=== PATIENT | female | born 1960 | race Caucasian/White ===

== ENCOUNTER → 2018-08-04 10:34 | Outpatient (CLI) | payer OTHER, SELFPAY ==
[2018-08-04 11:26] LABS: Add Manual Diff / Slide Review NO; Basophils Absolute Auto 0 /uL (0-100); Basophils Percent Auto 0.4 % (0-2); Eosinophils Absolute Auto 200 /uL (0-450); Eosinophils Percent Auto 4.4 % (2-4); Hematocrit 41.9 % (36-46); Lymphocytes Absolute Auto 1600 /uL (1100-4500); Lymphocytes Percent Auto 29.6 % (25-40); Mean Corpuscular HGB Conc 33.3 % (30-36); Mean Corpuscular Hemoglobin 30.6 PG (26-34); Monocytes Absolute Auto 500 /uL (0-900); Monocytes Percent Auto 8.8 % (3-14); Neutrophils Absolute Auto 3100 /uL (1500-7000); Neutrophils Percent Auto 56.8 % (50-75); Platelet Count 150 X10^3/uL (150-400); Red Blood Cell Count 4.56 X10^6/uL (4.0-5.2); Red Cell Distribution Width 13.9 % (11.6-14.8); White Blood Cell Count 5.4 X10^3/uL (4.5-11.0)
[2018-08-04 11:41] LABS: Alanine Aminotransferase 34 IU/L (9-52); Albumin 4.2 g/dL (3.5-5.0); Albumin Globulin Ratio 1.4 (1.0-2.8); Alkaline Phosphatase 75 U/L (38-126); Aspartate Aminotransferase 31 IU/L (14-36); Bilirubin Total 1.1 mg/dL (0.2-1.3); Blood Urea Nitrogen 21 mg/dL (7-17); Calcium 8.8 mg/dL (8.4-10.2); Carbon Dioxide 29 mmol/L (22-32); Chloride 100 mmol/L (98-107); Cholesterol 197 mg/dL (140-199); Estimated Glomerular Filt Rate > 60.0 mL/min (>60); Globulin 2.9 g/dL (1.7-4.1); Glucose 89 mg/dL (80-110); HDL Cholesterol 85 mg/dL (40-60); HEMOLYSIS < 15 (0-50); LDL Cholesterol Calculated 99 mg/dL (<100); Potassium 3.8 mmol/L (3.4-5.1); Sodium 137 mmol/L (137-145); Total Protein 7.1 g/dL (6.3-8.2); Triglycerides 63 mg/dL (35-150)
[2018-08-04 12:32] LABS: Thyroid Stimulating Hormone 5.44 uIU/mL (0.47-4.68)
== END ==
PROVIDERS: PCP Family Medicine; Visit Provider Family Medicine
DX: E78.00 Pure hypercholesterolemia, unspecified (principal); Z00.00 Encounter for general adult medical examination without abnormal findings
CPT/HCPCS: 36415; 80053; 80061; 84443; 85025

== ENCOUNTER → 2019-03-28 08:31 | Outpatient (CLI) | payer OTHER, SELFPAY ==
--- NOTE | 2019-03-28 08:32 | DI.MG.S_ITS ---
BILATERAL DIGITAL SCREENING MAMMOGRAM 3D/2D WITH CAD: 03/28/2019 CLINICAL: Routine screening. Family history of breast cancer. Comparison is made to exams dated: 10/02/2017 mammogram, 06/23/2015 mammogram - [facility], and 06/16/2013 mammogram - [facility]. The tissue of both breasts is heterogeneously dense. This may lower the sensitivity of mammography. Current study was also evaluated with a Computer Aided Detection (CAD) system. No significant masses, calcifications, or other findings are seen in either breast. There has been no significant interval change. IMPRESSION: NEGATIVE There is no mammographic evidence of malignancy. A 1 year screening mammogram is recommended. This exam was interpreted at Station ID: [id number]. NOTE: For mammograms, a report in lay terms will be sent to the patient. Approximately 15% of breast malignancies will not be visualized mammographically. In the management of a palpable breast mass, a negative mammogram must not discourage biopsy of a clinically suspicious lesion. Electronically Signed By: Viral marion/becky:03/30/2019 07:53:38 letter sent: Normal Exam ACR BI-RADS Category 1: Negative 3341F
== END ==
PROVIDERS: PCP Family Medicine; Visit Provider Family Medicine
DX: Z12.31 Encounter for screening mammogram for malignant neoplasm of breast (principal); Z80.3 Family history of malignant neoplasm of breast
CPT/HCPCS: 77063; 77067

== ENCOUNTER → 2019-08-05 09:25 | Outpatient (CLI) | payer OTHER, SELFPAY ==
[2019-08-05 10:09] LABS: Add Manual Diff / Slide Review NO; Basophils Absolute Auto 0 /uL (0-100); Basophils Percent Auto 0.6 % (0-2); Eosinophils Absolute Auto 300 /uL (0-450); Eosinophils Percent Auto 5.6 % (2-4); Hematocrit 42.5 % (36-46); Hemoglobin 14.5 g/dL (12.0-16.0); Lymphocytes Absolute Auto 1600 /uL (1100-4500); Lymphocytes Percent Auto 34.3 % (25-40); Mean Corpuscular HGB Conc 34.2 % (30-36); Mean Corpuscular Volume 90.8 fL (80-100); Monocytes Absolute Auto 400 /uL (0-900); Monocytes Percent Auto 8.7 % (3-14); Neutrophils Absolute Auto 2400 /uL (1500-7000); Neutrophils Percent Auto 50.8 % (50-75); Platelet Count 150 X10^3/uL (150-400); Red Blood Cell Count 4.68 X10^6/uL (4.0-5.2); Red Cell Distribution Width 13.5 % (11.6-14.8); White Blood Cell Count 4.7 X10^3/uL (4.5-11.0)
[2019-08-05 10:42] LABS: Alanine Aminotransferase 20 IU/L (<35); Albumin 4.6 g/dL (3.5-5.0); Albumin Globulin Ratio 1.6 (1.0-2.8); Alkaline Phosphatase 76 U/L (38-126); Aspartate Aminotransferase 34 IU/L (14-36); BUN Creatinine Ratio 30.9 (6-22); Bilirubin Total 1.5 mg/dL (0.2-1.3); Blood Urea Nitrogen 21 mg/dL (7-17); Calcium 9.7 mg/dL (8.4-10.2); Carbon Dioxide 30 mmol/L (22-32); Chloride 102 mmol/L (98-107); Cholesterol 210 mg/dL (140-199); Estimated Glomerular Filt Rate > 60.0 mL/min (>60); Globulin 2.9 g/dL (1.7-4.1); Glucose 91 mg/dL (80-110); HDL Cholesterol 82 mg/dL (40-60); HEMOLYSIS < 15 (0-50); LDL Cholesterol Calculated 118 mg/dL (<100); Sodium 138 mmol/L (137-145); Total Protein 7.5 g/dL (6.3-8.2); Triglycerides 48 mg/dL (35-150)
[2019-08-05 10:46] LABS: Potassium 5.4 mmol/L (3.4-5.1)
[2019-08-05 11:12] LABS: TSH w/ Reflex to FT4 6.29 uIU/mL (0.47-4.68)
[2019-08-05 11:41] LABS: Free T4, Direct Thyroxine 0.89 ng/dL (0.78-2.19)
== END ==
PROVIDERS: PCP Family Medicine; Referring Provider Family Medicine; Visit Provider Family Medicine
DX: E78.00 Pure hypercholesterolemia, unspecified (principal); R94.6 Abnormal results of thyroid function studies
CPT/HCPCS: 36415; 80053; 80061; 84439; 84443; 85025

== ENCOUNTER 2019-12-03 11:02 | Emergency (ER) | payer OTHER, SELFPAY ==
[2019-12-03 11:10] VITALS: BP 138/84; PULSE 67; RESP 16; TEMP 36.2; O2SAT 99; BMI 19.5
[2019-12-03] MEDS: LIDO 1%/SOD BICARB 8.4% (10ML) 10 ML SYRINGE INJ (11:40)
[2019-12-03] MEDS: TET,DIPH,PERTUSS(ACELL),VAC/PF 0.5 ML SYRINGE IM (11:41)
--- NOTE | 2019-12-03 11:54 | ED_ITS ---
HPI - Extremity Injury (Lower) <LI Lux - Last Filed: 12/03/19 14:40> General Chief Complaint: Extremity Injury, Lower Stated Complaint: cut on left leg Time Seen by Provider: 12/03/19 11:06 Source: patient Mode of arrival: Ambulatory Limitations: no limitations History of Present Illness HPI Narrative: The patient is a 59-year-old female nonsmoker with history of high cholesterol who presents with a chief complaint of a laceration to her left thigh. She states that she was cutting blackberry bushes an accidentally clipped hurt her left leg When the clippers rebounded. She does not know her last tetanus was. She is able to weightbear well, states that she thought she might be able to use Steri-Strips at home. However she is concerned about cleaning out as well as her not updated tetanus Related Data Home Medications Medication Instructions Recorded Confirmed multivitamin 1 cap PO DAILY 08/11/18 08/13/19 Previous Rx's Medication Instructions Recorded ferrous gluconate 324 mg PO BID #180 tab 10/29/18 Allergies Allergy/AdvReac Type Severity Reaction Status Date / Time codeine [CODEINE] Allergy Mild itchy skin Verified 08/13/19 09:02 Review of Systems <LI Lux - Last Filed: 12/03/19 14:40> Review of Systems Narrative: GENERAL: Denies chills, fatigue, malaise, fever, sweats. HEENT: Denies sinus pain, ear pain, sore throat, difficulty swallowing, dizziness. RESPIRATORY: Denies dyspnea, cough, wheezing, hemoptysis, sputum. CARDIOVASCULAR: Denies chest pain, palpitations, orthopnea, edema, GASTROINTESTINAL: Denies nausea, vomiting, abdominal pain, diarrhea, constipation, melena. : Denies dysuria, frequency, incontinence, hematuria, urinary retention. MUSCULOSKELETAL: denies weakness, joint pain, or bony pain SKIN: See HPI NEUROLOGIC: Denies weakness, headache, numbness, change in speech, confusion, seizures, incoordination. PSYCHIATRIC: No concerning psychosocial issues. 12 point review of systems is negative except for those stated above Patient History <LI Lux - Last Filed: 12/03/19 14:40> Family History (Updated 06/13/15 @ 00:00 by Conversion Provider) Brother Age: 59 Diabetes mellitus Heart disease Essential hypertension High cholesterol Grandfather Dementia Grandmother Malignant neoplasm of lung, unspecified laterality, unspecified part of lung Brain cancer Mother Ovarian cancer, unspecified laterality Diabetes mellitus Heart disease Heart murmur Sister Age: 68 Diabetes mellitus High cholesterol Smoker Social History marital status: Smoking Status: Never smoker alcohol intake: current (ON OCCASION ) substance use type: does not use Smoking Status: Never smoker Substance Use Type: does not use Exam <LI Lux - Last Filed: 12/03/19 14:40> Narrative Exam Narrative: GENERAL: This is a well-nourished, well-developed patient, in no acute distress HEAD: Atraumatic. Normocephalic. No temporal or scalp tenderness. EYES: Pupils equal round and reactive. Extraocular motions intact. No scleral icterus. No injection or drainage. ENT: Nose without bleeding, purulent drainage or septal hematoma. Airway patent. NECK: Trachea midline. No JVD or lymphadenopathy. Supple, nontender, no meningeal signs. CARDIOVASCULAR: Regular rate and rhythm RESPIRATORY: No cough. No increased respiratory effort. No accessory muscle use. EXTREMITIES: See skin exam. Weight-bearing with no defect bilateral lower legs. BACK: Nontender without deformity or crepitance. No flank tenderness. NEURO: AOx3. SKIN: 4 cm irregular laceration noted on anterior aspect of left thigh. Through dermis. No obvious muscle or tendon involvement. Oozing blood. No obvious foreign bodies. Initial Vital Signs Initial Vital Signs: Vital Signs Temperature 97.1 F L 12/03/19 11:10 Pulse Rate 67 12/03/19 11:10 Respiratory Rate 16 12/03/19 11:10 Blood Pressure 138/84 12/03/19 11:10 Pulse Oximetry 99 12/03/19 11:10 <Carlos Carpenter DO - Last Filed: 12/04/19 10:59> Initial Vital Signs Initial Vital Signs: Vital Signs Temperature 97.1 F L 12/03/19 11:10 Pulse Rate 67 12/03/19 11:10 Respiratory Rate 16 12/03/19 11:10 Blood Pressure 138/84 12/03/19 11:10 Pulse Oximetry 99 12/03/19 11:10 Procedures <LI Lux - Last Filed: 12/03/19 14:40> Laceration Repair Laceration 1: Site: lower extremity Side (If applicable): left Size (cm): 4 Description: flap and irregular Depth: simple, single layer Local Anesthetic: lidocaine 1% and with bicarb Amount of anesthesia used (mL): 6 Pre-repair: wound explored and irrigated extensively (sterile saline, chlorhexidine) Size (cm): 4-0 Number of sutures: 6 Technique: simple, interrupted Scores <LI Lux - Last Filed: 12/03/19 14:40> GCS [place] coma scale eye opening: Spontaneous [place] coma scale verbal response: Orientated [place] coma scale motor response: Obey commands Joaquina coma scale total score: 15 Course <LI Lux - Last Filed: 12/03/19 14:40> Orders Ordered: Discontinued Medications Bacitracin (Bacitracin) 1 applic TOP NOW ONE Stop: 12/03/19 11:57 Last Admin: 12/03/19 11:58 Dose: 1 applic Documented by: JUAN J Diphtheria/Tetanus/Acell Pertussis (Adacel) 0.5 ml IM .ONCE ONE Stop: 12/03/19 11:15 Last Admin: 12/03/19 11:41 Dose: 0.5 ml Documented by: JUAN J Lidocaine/Sodium Bicarbonate (Buffered Lidocaine 10 Ml Syr) 10 ml INJ NOW ONE Stop: 12/03/19 11:15 Last Admin: 12/03/19 11:40 Dose: 10 ml Documented by: JUAN J Vital Signs Vital signs: Vital Signs - 8 hr 12/03/19 11:10 12/03/19 12:15 Temperature 97.1 F L 98.5 F Pulse Rate 67 68 Respiratory Rate 16 16 Blood Pressure 138/84 132/77 Pulse Oximetry 99 99 <Carlos Carpenter DO - Last Filed: 12/04/19 10:59> Orders Ordered: Discontinued Medications Bacitracin (Bacitracin) 1 applic TOP NOW ONE Stop: 12/03/19 11:57 Last Admin: 12/03/19 11:58 Dose: 1 applic Documented by: JUAN J Diphtheria/Tetanus/Acell Pertussis (Adacel) 0.5 ml IM .ONCE ONE Stop: 12/03/19 11:15 Last Admin: 12/03/19 11:41 Dose: 0.5 ml Documented by: JUAN J Lidocaine/Sodium Bicarbonate (Buffered Lidocaine 10 Ml Syr) 10 ml INJ NOW ONE Stop: 12/03/19 11:15 Last Admin: 12/03/19 11:40 Dose: 10 ml Documented by: JUAN J Vital Signs Vital signs: Vital Signs - 8 hr 12/03/19 11:10 12/03/19 12:15 Temperature 97.1 F L 98.5 F Pulse Rate 67 68 Respiratory Rate 16 16 Blood Pressure 138/84 132/77 Pulse Oximetry 99 99 MDM - Extremity Injury (Lower) <GLADIS Lux- - Last Filed: 12/03/19 14:40> MDM Narrative Medical decision making narrative: The patient is a 59-year-old female who pres ents with a chief complaint of a laceration. Her tetanus was updated accordingly. Patient declined any x-ray for foreign body, though I have low suspicion given how well we were able to flush it out. Her wound was copiously cleansed with chlorhexidine and normal saline. Her wound was closed as per procedural note. I discussed at length follow up with primary care provider, monitoring for signs and symptoms of infection such as redness purulent drainage etcetera. Discussed not being submerged in dirty water such as pool or [place] water. Patient has no questions or concerns upon discharge and states understanding of return precautions as well as follow-up care Discharge Plan Departure Patient Disposition: Home Clinical Impression: Laceration Discharge Date/Time: 12/03/19 12:15 Instructions: DI for Laceration Repair, DI for Laceration Repair -- Simple Activity Restrictions/Additional Instructions: Thank you for trusting us with your care today. I am sorry that you were injured in hope you heal well and quickly Today we updated your tetanus and sutured your wound. As discussed, please do not submerge your wound into dirty water such as pools, hot tubs, lakes etcetera. This can increase your chance of infection. Please monitor for signs of infection such as redness, purulent drainage etcetera please follow up with these occur Please come back to emergency department for any acute concerns Please follow up for suture removal in approximately 8-10 days. Prescriptions: No Action ferrous gluconate 324 mg (38 mg iron) tablet 324 mg PO BID Qty: 180 RF: 3 multivitamin capsule 1 cap PO DAILY RF: 0 Referrals: Malcolm Monsivais MD [Primary Care Provider] - <Carlos Carpenter DO - Last Filed: 12/04/19 10:59> Cosign ED Attending Cosrosettaature Attestation: I was immediately available in the department for consultation. This documentation has been reviewed and I agree with assessment and plan. Supervised by Carlos Carpenter DO
[2019-12-03] MEDS: BACITRACIN OINT 0.9 GM PCKT 1 APPLIC TOP (11:58)
[2019-12-03 12:15] VITALS: BP 132/77; PULSE 68; RESP 16; TEMP 36.9; O2SAT 99
== END 2019-12-03 12:15 | disposition home or self-care (01) ==
PROVIDERS: Emergency Provider Nurse Practitioner Family; PCP Family Medicine
DX: S71.112A Laceration without foreign body, left thigh, initial encounter (principal); W45.8XXA Other foreign body or object entering through skin, initial encounter
CPT/HCPCS: 12002; 90471; 99282; 99283; 90715

== ENCOUNTER → 2020-07-21 10:35 | Outpatient (CLI) | payer OTHER, SELFPAY ==
[2020-07-21 11:13] LABS: Add Manual Diff / Slide Review NO; Basophils Absolute Auto 0 /uL (0-100); Basophils Percent Auto 0.4 % (0-2); Eosinophils Absolute Auto 200 /uL (0-450); Eosinophils Percent Auto 5.3 % (2-4); Hemoglobin 13.2 g/dL (12.0-16.0); Lymphocytes Absolute Auto 1800 /uL (1100-4500); Lymphocytes Percent Auto 40.4 % (25-40); Mean Corpuscular Hemoglobin 30.3 PG (26-34); Monocytes Absolute Auto 500 /uL (0-900); Monocytes Percent Auto 10.6 % (3-14); Neutrophils Absolute Auto 1900 /uL (1500-7000); Neutrophils Percent Auto 43.3 % (50-75); Platelet Count 142 X10^3/uL (150-400); Red Blood Cell Count 4.35 X10^6/uL (4.0-5.2); Red Cell Distribution Width 13.3 % (11.6-14.8); White Blood Cell Count 4.4 X10^3/uL (4.5-11.0)
[2020-07-21 11:24] LABS: Alanine Aminotransferase 20 IU/L (<35); Albumin 4.1 g/dL (3.5-5.0); Albumin Globulin Ratio 1.5 (1.0-2.8); Alkaline Phosphatase 76 U/L (38-126); Aspartate Aminotransferase 38 IU/L (14-36); BUN Creatinine Ratio 28.8 (6-22); Bilirubin Total 1.4 mg/dL (0.2-1.3); Blood Urea Nitrogen 17 mg/dL (7-17); Carbon Dioxide 32 mmol/L (22-32); Chloride 102 mmol/L (98-107); Cholesterol 202 mg/dL (140-199); Estimated Glomerular Filt Rate > 60.0 mL/min (>60); Globulin 2.7 g/dL (1.7-4.1); Glucose 95 mg/dL (80-110); HDL Cholesterol 82 mg/dL (40-60); HEMOLYSIS < 15 (0-50); LDL Cholesterol Calculated 114 mg/dL (<100); Potassium 3.7 mmol/L (3.4-5.1); Sodium 137 mmol/L (137-145); Total Protein 6.8 g/dL (6.3-8.2); Triglycerides 32 mg/dL (35-150)
[2020-07-21 12:36] LABS: TSH w/ Reflex to FT4 4.36 uIU/mL (0.47-4.68)
== END ==
PROVIDERS: PCP Family Medicine; Referring Provider Family Medicine; Visit Provider Family Medicine
DX: E78.00 Pure hypercholesterolemia, unspecified (principal); R94.6 Abnormal results of thyroid function studies
CPT/HCPCS: 36415; 80053; 80061; 84443; 85025

== ENCOUNTER → 2021-08-08 11:18 | Outpatient (CLI) | payer OTHER, SELFPAY ==
[2021-08-08 12:38] LABS: Add Manual Diff / Slide Review NO; Basophils Absolute Auto 0 /uL (0-100); Basophils Percent Auto 0.5 % (0-2); Eosinophils Absolute Auto 200 /uL (0-450); Eosinophils Percent Auto 4.7 % (2-4); Hematocrit 40.6 % (36-46); Hemoglobin 13.6 g/dL (12.0-16.0); Lymphocytes Absolute Auto 1500 /uL (1100-4500); Lymphocytes Percent Auto 35.3 % (25-40); Mean Corpuscular HGB Conc 33.5 % (30-36); Mean Corpuscular Hemoglobin 30.4 PG (26-34); Mean Corpuscular Volume 90.8 fL (80-100); Monocytes Absolute Auto 400 /uL (0-900); Monocytes Percent Auto 9.6 % (3-14); Neutrophils Absolute Auto 2200 /uL (1500-7000); Neutrophils Percent Auto 49.9 % (50-75); Platelet Count 154 X10^3/uL (150-400); Red Blood Cell Count 4.47 X10^6/uL (4.0-5.2); Red Cell Distribution Width 13.4 % (11.6-14.8); White Blood Cell Count 4.3 X10^3/uL (4.5-11.0)
[2021-08-08 12:48] LABS: HEMOLYSIS < 15 (0-50); Iron 86 ug/dL (37-170)
[2021-08-08 13:01] LABS: Percent Iron Saturation 27 % (15-50); Total Iron Binding Capacity 321 ug/dL (265-497); Transferrin 259 mg/dL (206-381)
[2021-08-08 13:07] LABS: Alanine Aminotransferase 17 IU/L (<35); Albumin 4.5 g/dL (3.5-5.0); Albumin Globulin Ratio 1.6 (1.0-2.8); Alkaline Phosphatase 71 U/L (38-126); Aspartate Aminotransferase 27 IU/L (14-36); BUN Creatinine Ratio 21.2 (6-22); Blood Urea Nitrogen 14 mg/dL (7-17); Calcium 9.2 mg/dL (8.4-10.2); Carbon Dioxide 29 mmol/L (22-32); Chloride 103 mmol/L (98-107); Cholesterol 201 mg/dL (140-199); Estimated Glomerular Filt Rate > 60.0 mL/min (>60); Globulin 2.8 g/dL (1.7-4.1); Glucose 88 mg/dL (80-110); HDL Cholesterol 86 mg/dL (40-60); HEMOLYSIS < 15 (0-50); LDL Cholesterol Calculated 103 mg/dL (<100); Potassium 4.1 mmol/L (3.4-5.1); Sodium 140 mmol/L (137-145); Total Protein 7.3 g/dL (6.3-8.2); Triglycerides 62 mg/dL (35-150)
[2021-08-08 13:20] LABS: Thyroid Stimulating Hormone 5.13 uIU/mL (0.47-4.68)
== END ==
PROVIDERS: PCP Family Medicine; Referring Provider Physician Assistant; Visit Provider Physician Assistant
DX: E78.00 Pure hypercholesterolemia, unspecified (principal); R94.6 Abnormal results of thyroid function studies; Z86.2 Personal history of diseases of the blood and blood-forming organs and certain disorders involving the immune mechanism
CPT/HCPCS: 36415; 80053; 80061; 83540; 83550; 84443; 85025

== ENCOUNTER → 2021-12-05 13:28 | Outpatient (CLI) | payer OTHER, SELFPAY ==
--- NOTE | 2021-12-05 13:29 | DI.MG.S_ITS ---
BILATERAL DIGITAL SCREENING MAMMOGRAM 3D/2D WITH CAD: 12/05/2021 CLINICAL: Routine screening. Family history of breast cancer. Comparison is made to exams dated: 03/28/2019 mammogram, 10/02/2017 mammogram, and 06/23/2015 mammogram - [facility]. The tissue of both breasts is heterogeneously dense. This may lower the sensitivity of mammography. Current study was also evaluated with a Computer Aided Detection (CAD) system. No significant masses, calcifications, or other findings are seen in either breast. There has been no significant interval change. IMPRESSION: NEGATIVE There is no mammographic evidence of malignancy. A 1 year screening mammogram is recommended. This exam was interpreted at Station ID: [id number]. NOTE: For mammograms, a report in lay terms will be sent to the patient. Approximately 15% of breast malignancies will not be visualized mammographically. In the management of a palpable breast mass, a negative mammogram must not discourage biopsy of a clinically suspicious lesion. Electronically Signed By: Ant Lema acr/becky:12/05/2021 15:16:08 letter sent: Normal Exam ACR BI-RADS Category 1: Negative 3341F
== END ==
PROVIDERS: PCP Family Medicine; Referring Provider Family Medicine; Visit Provider Family Medicine
DX: Z12.31 Encounter for screening mammogram for malignant neoplasm of breast (principal); Z80.3 Family history of malignant neoplasm of breast
CPT/HCPCS: 77063; 77067

== ENCOUNTER → 2022-10-19 09:03 | Outpatient (CLI) | payer OTHER, SELFPAY ==
[2022-10-19 10:11] LABS: Add Manual Diff / Slide Review NO; Basophils Absolute Auto 0 /uL (0-100); Basophils Percent Auto 0.6 % (0-2); Eosinophils Absolute Auto 100 /uL (0-450); Eosinophils Percent Auto 3.6 % (2-4); Hematocrit 41.1 % (36-46); Hemoglobin 13.9 g/dL (12.0-16.0); Lymphocytes Absolute Auto 1300 /uL (1100-4500); Lymphocytes Percent Auto 32.2 % (25-40); Mean Corpuscular HGB Conc 33.8 % (30-36); Mean Corpuscular Hemoglobin 31.1 PG (26-34); Monocytes Absolute Auto 400 /uL (0-900); Monocytes Percent Auto 10.3 % (3-14); Neutrophils Absolute Auto 2100 /uL (1500-7000); Neutrophils Percent Auto 53.3 % (50-75); Platelet Count 163 X10^3/uL (150-400); Red Blood Cell Count 4.47 X10^6/uL (4.0-5.2)
[2022-10-19 10:37] LABS: Alanine Aminotransferase 18 IU/L (<35); Albumin 4.2 g/dL (3.5-5.0); Albumin Globulin Ratio 1.5 (1.0-2.8); Alkaline Phosphatase 74 U/L (38-126); Aspartate Aminotransferase 27 IU/L (14-36); BUN Creatinine Ratio 30.2 (6-22); Bilirubin Total 1.6 mg/dL (0.2-1.3); Blood Urea Nitrogen 19 mg/dL (7-17); Calcium 8.9 mg/dL (8.4-10.2); Carbon Dioxide 30 mmol/L (22-32); Chloride 99 mmol/L (98-107); Cholesterol 192 mg/dL (140-199); Estimated Glomerular Filt Rate > 60 mL/min (>60); Globulin 2.8 g/dL (1.7-4.1); Glucose 86 mg/dL (80-110); HDL Cholesterol 95 mg/dL (40-60); HEMOLYSIS < 15 (0-50); LDL Cholesterol Calculated 86 mg/dL (<100); Potassium 4.2 mmol/L (3.4-5.1); Sodium 135 mmol/L (137-145); Triglycerides 54 mg/dL (35-150)
[2022-10-19 11:09] LABS: TSH w/ Reflex to FT4 4.92 uIU/mL (0.47-4.68)
[2022-10-19 11:37] LABS: Free T4, Direct Thyroxine 0.93 ng/dL (0.78-2.19)
== END ==
PROVIDERS: PCP Family Medicine; Referring Provider Family Medicine; Visit Provider Family Medicine
DX: E78.00 Pure hypercholesterolemia, unspecified (principal); R94.6 Abnormal results of thyroid function studies; Z86.2 Personal history of diseases of the blood and blood-forming organs and certain disorders involving the immune mechanism
CPT/HCPCS: 36415; 80053; 80061; 84439; 84443; 85025

== ENCOUNTER → 2022-12-20 07:25 | Outpatient (CLI) | payer OTHER, SELFPAY ==
--- NOTE | 2022-12-20 | DI.MG.S_ITS ---
BILATERAL DIGITAL SCREENING MAMMOGRAM 3D/2D WITH CAD: 12/20/2022 CLINICAL: Routine screening. Family history of breast cancer. Comparison is made to exams dated: 12/05/2021 mammogram, 03/28/2019 mammogram, 10/02/2017 mammogram, and 06/23/2015 mammogram - [facility]. Both breasts are heterogeneously dense, which may obscure small masses (category c / 51-75% glandular tissue). Current study was also evaluated with a Computer Aided Detection (CAD) system. No significant masses, calcifications, or other findings are seen in either breast. There has been no significant interval change. IMPRESSION: NEGATIVE There is no mammographic evidence of malignancy. A 1 year screening mammogram is recommended. Based on the Tyrer Cuzick model (a risk assessment model) the patient's lifetime risk is 15.2% and her 10 year risk is 7.2%. According to the ACR, ACS, and NCCN guidelines, an annual breast MRI exam along with mammogram is recommended if the patient's lifetime risk is 20% or greater. This exam was interpreted at Station ID: [id number]. NOTE: For mammograms, a report in lay terms will be sent to the patient. Approximately 15% of breast malignancies will not be visualized mammographically. In the management of a palpable breast mass, a negative mammogram must not discourage biopsy of a clinically suspicious lesion. Electronically Signed By: Tuan miranda/becky:12/20/2022 14:57:19 letter sent: Normal Exam ACR BI-RADS Category 1: Negative 3341F
== END ==
PROVIDERS: PCP Family Medicine; Referring Provider Family Medicine; Visit Provider Family Medicine
DX: Z12.31 Encounter for screening mammogram for malignant neoplasm of breast (principal); Z80.3 Family history of malignant neoplasm of breast
CPT/HCPCS: 77063; 77067

== ENCOUNTER → 2023-02-15 10:29 | Outpatient (CLI) | payer MEDICARE, SELFPAY ==
--- NOTE | 2023-02-15 10:30 | DI.RAD.S_ITS ---
Bone Density Report Name: SELINA PERALTA Age: 63 Sex: Female Ethnicity: White Date of : 1960 Indication: postmenopausal; screening for osteoporosis; history of glucocorticoids; Referring Provider: DARINEL HERNANDEZ Study: Bone densitometry was performed. Exam Date: February 15, 2023 Accession number: [id number] Bone Density: Region BMD T-score Z-score Classification AP Spine(L1-L4) 0.991 -0.5 1.3 Normal Femoral Neck (Left) 0.768 -0.7 0.8 Normal Total Hip (Left) 0.761 -1.5 -0.3 Osteopenia Femoral Neck (Right) 0.743 -1.0 0.6 Normal Total Hip (Right) 0.745 -1.6 -0.4 Osteopenia Total Hip Mean 0.753 -1.6 -0.4 Osteopenia World Health Organization criteria for BMD impression classify patients as: Normal (T-score at or above -1.0), Osteopenia (T-score between -1.0 and -2.5), or Osteoporosis (T-score at or below -2.5). 10-year Fracture Risk(1): Major Osteoporotic Fracture 11% Hip Fracture 1.0% Reported Risk Factors: [place] (), Neck BMD=0.743, BMI=19.0, glucocorticoids (1) FRAX(R) Version 3.08. Fracture probability calculated for an untreated patient. Fracture probability may be lower if the patient has received treatment. Impression: The patient has low bone mass, based on the Right Total Hip T-score. The patient has an estimated ten-year risk of hip fracture of 1% and an estimated ten-year risk of major fracture of 11%, based on the WHO FRAX algorithm. The patient has risk factors, including: history of glucocorticoid therapy. Discussion: BONE DENSITY IS LOW AT ONE OR MORE SKELETAL SITES. This patient's lowest T-score is low at one or more skeletal sites. It meets the World Health Organization's (WHO) criteria for low bone mass (T-score between -1.0 and -2.5). The patient's 10-year risk of fracture as calculated by FRAX is less than the threshold where pharmacological therapy is recommended by the National Osteoporosis Foundation (NOF). However, all treatment decisions require clinical judgment and consideration of individual patient factors, including patient preferences, comorbidities, previous drug use, risk factors not captured in the FRAX model (e.g., frailty, falls, vitamin D deficiency, increased bone turnover, interval significant decline in bone density) and possible under or overestimation of fracture risk by FRAX. The patient should follow a healthful lifestyle (good nutrition with adequate calcium and vitamin D, and appropriate weight-bearing exercise). Follow-Up: Consider repeating this study in 2 to 3 years to reassess this patient's status, or sooner if there is some new clinical indication. Reported by: GUSTAVO RUTLEDGE M.D. on 02/15/2023 11:33:00 AM.
== END ==
PROVIDERS: PCP Family Medicine; Referring Provider Family Medicine; Visit Provider Family Medicine
DX: Z78.0 Asymptomatic menopausal state (principal); M85.851 Other specified disorders of bone density and structure, right thigh; Z92.241 Personal history of systemic steroid therapy
CPT/HCPCS: 77080

== ENCOUNTER → 2023-09-30 09:52 | Outpatient (CLI) | payer MEDICARE, OTHER, SELFPAY ==
--- NOTE | 2023-09-30 09:54 | DI.RAD.S_ITS ---
PROCEDURE: XR KNEE RT 3V INDICATIONS: pain and weekness TECHNIQUE: 3 views of the knee were acquired. COMPARISON: None. FINDINGS: Bones: No fractures or dislocations. No suspicious bony lesions. Soft tissues: No joint effusion. No suspicious soft tissue calcifications. IMPRESSION: No acute bony abnormality or significant effusion. No significant degenerative change. Dictated by: Jeison Rosales M.D. on 09/30/2023 at 12:04 Approved by: Jeison Rosales M.D. on 09/30/2023 at 12:05
== END ==
PROVIDERS: PCP Family Medicine; Referring Provider Family Medicine; Visit Provider Family Medicine
DX: M25.569 Pain in unspecified knee (principal)
CPT/HCPCS: 73562

== ENCOUNTER → 2023-10-09 09:07 | Outpatient (CLI) | payer MEDICARE, OTHER, SELFPAY ==
--- NOTE | 2023-10-09 09:08 | DI.MRI.S_ITS ---
PROCEDURE: MR BRAIN (IAC) WWO CON INDICATIONS: acute hearing loss to left ear r/o [place] TECHNIQUE: Noncontrast sagittal T1 spin echo, axial FLAIR, axial gradient echo, axial diffusion and ADC through the brain. Axial thin-slice 3D CISS, coronal TruFISP, axial T1 spin echo with fat saturation through the internal auditory canals. After the administration of contrast, thin slice axial and coronal T1 spin echo with fat saturation through the internal auditory canals, and axial and coronal and sagittal T1 spin echo with fat saturation through the brain. COMPARISON: None. FINDINGS: Image quality: Excellent. Cerebellopontine angles/cranial nerves: No cerebellopontine angle masses. Inner ear structures appear normally formed. Visualized cranial nerves demonstrate no areas of abnormal enhancement, signal or mass lesion. CSF spaces: Ventricles are normal in size and shape. No extra-axial fluid collections. Basal cisterns are patent. Brain: No intracranial bleeds or mass effects. [place]-white matter interface is intact. No abnormal intracranial enhancement. Diffusion weighted images demonstrate no acute ischemic insults. Brainstem appears normal. Normal intravascular flow voids are present. Skull and face: Calvarial marrow signal is normal. Orbits appear normal. Sinuses: Sinuses demonstrates scattered mild pansinus mucosal thickening. IMPRESSION: 1. No acute intracranial process. 2. Visualized cranial nerves and cerebellopontine angles demonstrate no areas of abnormal enhancement, signal or mass lesion. Dictated by: Suri Swift M.D. on 10/09/2023 at 13:51 Approved by: Suri Swift M.D. on 10/09/2023 at 13:52
== END ==
LOC: MRI 09:08
PROVIDERS: PCP Family Medicine; Referring Provider Family Medicine; Visit Provider Family Medicine
DX: H91.22 Sudden idiopathic hearing loss, left ear (principal)
CPT/HCPCS: 70553; A9579

== ENCOUNTER → 2024-01-21 13:59 | Outpatient (CLI) | payer MEDICARE, OTHER, SELFPAY ==
--- NOTE | 2024-01-21 14:00 | DI.RAD.S_ITS ---
PROCEDURE: XR HIP W PEL IF DONE RT 2V INDICATIONS: right hip pain TECHNIQUE: AP pelvis with lateral view of the right hip. COMPARISON: None. FINDINGS: Bones: No acute fractures or dislocations. Pelvic ring appears intact. No suspicious bony lesions. Moderate to severe degenerative changes in the right hip with joint space narrowing, subchondral sclerosis, marginal osteophyte formation. Mild left hip osteoarthrosis. Multilevel degenerative changes in the included spine. Soft tissues: The visualized bowel gas pattern is normal. No suspicious soft tissue calcifications. IMPRESSION: Moderate to severe right hip osteoarthrosis. Mild left hip osteoarthrosis. Approved by: Arun Tejeda M.D. on 01/21/2024 at 16:23
== END ==
LOC: RAD 14:00
PROVIDERS: PCP Family Medicine; Referring Provider Family Medicine; Visit Provider Family Medicine
DX: M16.0 Bilateral primary osteoarthritis of hip (principal); M25.561 Pain in right knee
CPT/HCPCS: 73502

== ENCOUNTER → 2024-02-04 13:57 | Outpatient (CLI) | payer MEDICARE, OTHER, SELFPAY ==
--- NOTE | 2024-02-04 13:58 | DI.MG.S_ITS ---
BILATERAL DIGITAL SCREENING MAMMOGRAM 3D/2D WITH CAD: 02/04/2024 CLINICAL: Routine screening. Family history of breast cancer. Comparison is made to exams dated: 12/20/2022 mammogram, 12/05/2021 mammogram, and 03/28/2019 mammogram - [facility]. There are scattered areas of fibroglandular density (category b / 25%-50% glandular tissue). Current study was also evaluated with a Computer Aided Detection (CAD) system. No significant masses, calcifications, or other findings are seen in either breast. There has been no significant interval change. IMPRESSION: NEGATIVE There is no mammographic evidence of malignancy. A 1 year screening mammogram is recommended. Based on the Tyrer Cuzick model (a risk assessment model) the patient's lifetime risk is 9.4% and her 10 year risk is 4.8%. According to the ACR, ACS, and NCCN guidelines, an annual breast MRI exam along with mammogram is recommended if the patient's lifetime risk is 20% or greater. This exam was interpreted at Station ID: [id number]. NOTE: For mammograms, a report in lay terms will be sent to the patient. Approximately 15% of breast malignancies will not be visualized mammographically. In the management of a palpable breast mass, a negative mammogram must not discourage biopsy of a clinically suspicious lesion. Electronically Signed By: Ermelinda morgan/becky:02/04/2024 16:31:27 letter sent: Normal Exam ACR BI-RADS Category 1: Negative 3341F
== END ==
PROVIDERS: PCP Family Medicine; Referring Provider Family Medicine; Visit Provider Family Medicine
DX: Z12.31 Encounter for screening mammogram for malignant neoplasm of breast (principal); Z80.3 Family history of malignant neoplasm of breast; R92.323 Mammographic fibroglandular density, bilateral breasts
CPT/HCPCS: 77063; 77067

== ENCOUNTER → 2024-08-04 08:56 | Outpatient (CLI) | payer MEDICARE, OTHER, SELFPAY ==
[2024-08-04 09:40] LABS: Add Manual Diff / Slide Review NO; Basophils Absolute Auto 0 /uL (0-100); Basophils Percent Auto 0.7 % (0-2); Eosinophils Absolute Auto 200 /uL (0-450); Eosinophils Percent Auto 5.2 % (2-4); Hematocrit 40.6 % (36-46); Hemoglobin 13.7 g/dL (12.0-16.0); Lymphocytes Absolute Auto 1500 /uL (1100-4500); Lymphocytes Percent Auto 31.9 % (25-40); Mean Corpuscular HGB Conc 33.8 % (30-36); Mean Corpuscular Hemoglobin 30.9 PG (26-34); Mean Corpuscular Volume 91.4 fL (80-100); Monocytes Absolute Auto 400 /uL (0-900); Neutrophils Absolute Auto 2500 /uL (1500-7000); Neutrophils Percent Auto 53.2 % (50-75); Platelet Count 158 X10^3/uL (150-400); Red Blood Cell Count 4.44 X10^6/uL (4.0-5.2); Red Cell Distribution Width 12.6 % (11.6-14.8); White Blood Cell Count 4.8 X10^3/uL (4.5-11.0)
[2024-08-04 10:27] LABS: Alanine Aminotransferase 15 IU/L (<35); Albumin 4.4 g/dL (3.5-5.0); Albumin Globulin Ratio 1.7 (1.0-2.8); Alkaline Phosphatase 68 U/L (38-126); Aspartate Aminotransferase 26 IU/L (14-36); Bilirubin Total 1.3 mg/dL (0.2-1.3); Blood Urea Nitrogen 14 mg/dL (7-17); Calcium 9.3 mg/dL (8.4-10.2); Carbon Dioxide 30 mmol/L (22-32); Chloride 101 mmol/L (98-107); Cholesterol 218 mg/dL (140-199); Estimated Glomerular Filt Rate > 60 mL/min (>60); Globulin 2.6 g/dL (1.7-4.1); Glucose 101 mg/dL (80-110); HDL Cholesterol 75 mg/dL (40-60); HEMOLYSIS < 15 (0-50); LDL Cholesterol Calculated 127 mg/dL (<100); Sodium 138 mmol/L (137-145); Triglycerides 81 mg/dL (35-150)
[2024-08-04 10:44] LABS: TSH w/ Reflex to FT4 3.53 uIU/mL (0.47-4.68)
== END ==
LOC: LAB 08:57
PROVIDERS: PCP Family Medicine; Referring Provider Family Medicine; Visit Provider Family Medicine
DX: R94.6 Abnormal results of thyroid function studies (principal); E78.00 Pure hypercholesterolemia, unspecified
CPT/HCPCS: 36415; 80053; 80061; 84443; 85025

== ENCOUNTER → 2024-12-21 10:04 | Outpatient (CLI) | payer MEDICARE, OTHER, SELFPAY ==
--- NOTE | 2024-12-21 10:06 | DI.RAD.S_ITS ---
PROCEDURE: XR KNEE RT 3V INDICATIONS: hip and knee pain TECHNIQUE: 3 views of the knee were acquired. COMPARISON: [facility], CR, XR KNEE RT 3V, 09/30/2023, 9:59. FINDINGS: Bones: No fractures or dislocations. No suspicious bony lesions. No significant degenerative changes. Soft tissues: No joint effusion. No suspicious soft tissue calcifications. IMPRESSION: No acute bony abnormality or significant effusion. No significant degenerative changes. If there is persistent clinical concern for internal soft tissue derangement, consider further evaluation with MRI. Dictated by: Derian Cohn M.D. on 12/21/2024 at 15:41 Approved by: Derian Cohn M.D. on 12/21/2024 at 15:42
--- NOTE | 2024-12-21 10:06 | DI.RAD.S_ITS ---
PROCEDURE: XR HIP W PEL IF DONE RT 2V INDICATIONS: hip and knee pain TECHNIQUE: AP pelvis with lateral view(s) of the right hip(s). COMPARISON: [facility], , XR HIP W PEL IF DONE RT 2V, 01/21/2024, 14:04. FINDINGS: Bones: No acute fractures or dislocations. Severe right and moderate left bilateral hip osteoarthrosis. Pelvic ring appears intact. No suspicious bony lesions. Soft tissues: The visualized bowel gas pattern is normal. No suspicious soft tissue calcifications. IMPRESSION: No acute fracture or dislocation. Severe right and moderate left hip osteoarthrosis. If there are persistent symptoms or clinical suspicion for pathology, then repeat radiographs or advanced imaging (CT or MRI) may be considered for further evaluation. Dictated by: Derian Cohn M.D. on 12/21/2024 at 15:28 Approved by: Derian Cohn M.D. on 12/21/2024 at 15:41
== END ==
PROVIDERS: PCP Family Medicine; Referring Provider Family Medicine; Visit Provider Family Medicine
DX: M16.0 Bilateral primary osteoarthritis of hip (principal); M25.551 Pain in right hip; M25.569 Pain in unspecified knee; G89.29 Other chronic pain
CPT/HCPCS: 73502; 73562

== ENCOUNTER → 2025-02-05 08:16 | Outpatient (CLI) | payer MEDICARE, OTHER, SELFPAY ==
--- NOTE | 2025-02-05 08:17 | DI.MG.S_ITS ---
MM screening mammo BI: 02/05/2025. BI-RADS: 1 CLINICAL: 65-year old female for bilateral screening mammogram. Tyrer-Cuzick lifetime risk of 4.1%. No personal or first-degree family history of breast cancer. History of ovarian cancer in one first-degree relative. PRIOR EXAMS 02/04/2024, 12/20/2022, 12/05/2021, 03/28/2019. MAMMOGRAPHY TECHNIQUE: 2D and 3D (tomosynthesis) digital mammographic views obtained, with additional images as needed for full coverage. Current study was also evaluated with a Computer Aided Detection (CAD) system. DENSITY C. The breasts are heterogeneously dense, which may obscure small masses. MAMMOGRAPHY FINDINGS Bilateral: No suspicious mass, asymmetry, microcalcification, or other abnormality seen. IMPRESSION: * No evidence of malignancy. RECOMMENDATIONS Bilateral * Annual screening mammography. OVERALL ASSESSMENT CATEGORY BI-RADS-1: Negative. The [employer] recommends annual screening mammography beginning at age 40 for women with average risk of breast cancer. ELECTRONICALLY SIGNED: Paris Goldstein M.D. on 02/11/2025 at 12:40:27 PM PT Interpreting Station ID: [id number]
== END ==
LOC: MAMMO 08:17
PROVIDERS: PCP Family Medicine; Referring Provider Family Medicine; Visit Provider Family Medicine
DX: Z12.31 Encounter for screening mammogram for malignant neoplasm of breast (principal); R92.333 Mammographic heterogeneous density, bilateral breasts
CPT/HCPCS: 77063; 77067